=== PATIENT | male | born 1980 | race Caucasian/White ===

== ENCOUNTER 2018-10-16 13:52 | Emergency (ER) | payer SELFPAY ==
[~2018-10-16] VITALS: Ht 165.1 cm; Wt 92.2 kg
[~2018-10-16 13:52] MED LIST: CEPH-443 PO; HYDR-3498 PO; IBUP-1542 PO
[2018-10-16 14:04] VITALS: BP 143/86; PULSE 81; RESP 18; Ht 165.1 cm; Wt 92.2 kg
[2018-10-16] MEDS ORDERED: LIDOCAINE 1% (MPF) 5 ML VIAL INFIL ONE (17:30)
[2018-10-16] MEDS ORDERED: DIPHTH/TET/ACEL PERTUSS (ADULT) 0.5 ML VIAL IM* ONE (20:30)
[2018-10-16] MEDS ORDERED: IBUP-1542 PO (20:47)
[2018-10-16] MEDS ORDERED: ACET-141 PO (20:47)
[2018-10-16] MEDS ORDERED: CEPH-443 PO (20:49)
--- NOTE | 2018-10-16 20:58 | ERD ---
ER Documentation Chief Complaint Chief Complaint pt is bib self with c/o lac between left ring and middle finger HPI 38-year-old male presents for right hand laceration between the third and fourth digit webspace. He states that he was working on some sheet metal accidentally lacerated his finger. No pain currently. Unclear when he last had his tetanus shot. Denies sniffing past medical history. ROS All systems reviewed and are negative except as per history of present illness. Medications Home Meds Active Scripts Cephalexin* (Keflex*) 500 Mg Capsule, 500 MG PO TID for hand infection for 5 Days, #15 CAP Prov:UCHE WADE DO 10/16/18 Acetaminophen* (Acetaminophen*) 500 MG Extra Strength Tablet, 500 MG PO Q4H PRN for PAIN AND OR ELEVATED TEMP, #30 TAB Prov:UCHE WADE DO 10/16/18 Ibuprofen* (Motrin*) 600 Mg Tab, 600 MG PO Q6H PRN for PAIN AND OR ELEVATED TEMP, #30 TAB Prov:UCHE WADE DO 10/16/18 Cephalexin* (Keflex*) 500 Mg Capsule, 500 MG PO QID for 7 Days, CAP Prov:CHO,HECTOR 01/04/15 Hydrocodone Bit-Acetaminophen* ([place]*) 5-325 Mg Tab, 1 TAB PO Q6 PRN for PAIN LEVEL 6-10, #15 TAB Prov:CHO,HECTOR 01/04/15 Ibuprofen* (Motrin*) 600 Mg Tab, 600 MG PO Q6 for PAIN LEVEL 1-5, #15 TAB Prov:CHO,HECTOR 01/04/15 Allergies Allergies: Coded Allergies: No Known Allergy (Unverified , 01/04/15) PMhx/Soc Medical and Surgical Hx: pt denies Medical Hx History of Surgery: Yes (HERNIA) Anesthesia Reaction: No Hx Neurological Disorder: No Hx Respiratory Disorders: No Hx Cardiac Disorders: No Hx Psychiatric Problems: No Hx Miscellaneous Medical Probl: No Hx Alcohol Use: Yes (SOCIAL) Hx Substance Use: No Hx Tobacco Use: Yes Smoking Status: Current some day smoker Physical Exam Vitals Vital Signs Date Temp Pulse Resp B/P (MAP) Pulse Ox O2 O2 Flow FiO2 Time Delivery Rate 10/16/18 98.1 81 18 143/86 96 14:04 (105) Physical Exam Const: No acute distress Resp clear to all station bilaterally Cardio: Regular rate and rhythm, no murmurs, cap refills less than 2 seconds in all fingers of left hand Abd: Soft, non tender, non distended. Normal bowel sounds Skin: 2 cm laceration noted over the left hand third and fourth digit webspace Back: No midline or flank tenderness Ext: No cyanosis, or edema Neur: Awake and alert, sensation intact over the left hand Psych: Normal Mood and Affect Results 24 hrs Current Medications Medications Dose Sig/Po Start Time Status Last (Trade) Ordered Route PRN Stop Time Admin Dose Reason Admin Lidocaine 5 ml ONCE ONCE 10/16/18 DC (Xylocaine INFIL 17:30 1% (Mpf)) 10/16/18 17:31 Diphtheria/ 0.5 ml ONCE ONCE 10/16/18 DC 10/16/18 Tetanus/Acell IM* 20:30 20:39 Pertussis 10/16/18 20:31 (Adacel) Procedures/MDM Laceration Repair by me: Anesthesia: 1% lidocaine without epinephrine locally Location: Left hand webspace between the third and fourth digit Tendon/Joint/Nerves: No injury Foreign body: None detected after copious irrigation and exploration Technique: Simple Interrupted Sutures Complexity: No subcutaneous sutures/mucosal repair/edge excision Post Closure Length: 2 cm Patient's bleeding was easily controlled in the department and there is no indication of anemia. No evidence of compartment syndrome, neurologic injury, vascular injury, open joint, tendon laceration, or foreign body. Patient is appropriate for outpatient follow up. 48 hour wound check. Scar minimization instructions given. Medical Decision Making: Patient has a laceration on the left hand between the third and fourth digit webspace Patient appeared well on physical exam. Patient neurovascularly intact ED course: Given the patient was using sheet-metal there was concern for foreign body therefore x-ray was done. X-ray left hand 3V interpreted by me: Scaphoid: Normal Bones: No fracture Joints: No dislocation Foreign body: None Tetanus was updated. Prescription(s): Patient given prescription for supportive medication(s). Advised to return to the ER in 48 hours for wound check. Advised to return to the ER in 10-14 days for suture removal. Patient advised to follow up with PCP in 1-2 days. Patient advised to return to ED for new or worsening symptoms. Patient stable on discharge from the ED. Disclaimer: Inadvertent spelling and grammatical errors are likely due to EHR/dictation software use and do not reflect on the overall quality of patient care. Also, please note that the electronic time recorded on this note does not necessarily reflect the actual time of the patient encounter. Departure Diagnosis: Primary Impression: Laceration Patient Instructions: Laceration, All Referrals: [facility] YOU HAVE RECEIVED A MEDICAL SCREENING EXAM AND THE RESULTS INDICATE THAT YOU DO NOT HAVE A CONDITION THAT REQUIRES URGENT TREATMENT IN THE EMERGENCY DEPARTMENT. FURTHER EVALUATION AND TREATMENT OF YOUR CONDITION CAN WAIT UNTIL YOU ARE SEEN IN YOUR DOCTORS OFFICE WITHIN THE NEXT 1-2 DAYS. IT IS YOUR RESPONSIBILITY TO MAKE AN APPOINTMENT FOR FOLOW-UP CARE. IF YOU HAVE A PRIMARY DOCTOR --you should call your primary doctor and schedule an appointment IF YOU DO NOT HAVE A PRIMARY DOCTOR YOU CAN CALL OUR PHYSICIAN REFERRAL HOTLINE AT IF YOU CAN NOT AFFORD TO SEE A PHYSICIAN YOU CAN CHOSE FROM THE FOLLOWING [facility] [address] [facility]. [facility] [address] [facility] [address] [facility] [address] [facility] [address] [facility] [facility]. [address] Additional Instructions: Call your primary care doctor TOMORROW for an appointment during the next 1-2 days.See the doctor sooner or return here if your condition worsens before your appointment time. Llame al doctor MAANA y jeannie sergey SIMON PARA DENTRO DE 1-2 SINGLETON.Dgale a la secretaria que nosotros le instruimos hacer esta simon.Avise o llame si duke condicin se empeora antes de la simon. Regresa aqui si peor o no mejor. Return to ER in 2 days for wound check Return in 10-14 days for suture removal UCHE WADE DO Oct 16, 2018 20:58
== END 2018-10-16 21:03 | disposition home or self-care (01) ==
LOC: FTE 13:52
DX: S61.412A Laceration without foreign body of left hand, initial encounter (principal); F17.210 Nicotine dependence, cigarettes, uncomplicated; W26.8XXA Contact with other sharp object(s), not elsewhere classified, initial encounter; Y92.89 Other specified places as the place of occurrence of the external cause; Z23 Encounter for immunization
CPT/HCPCS: 90471; 90715

== ENCOUNTER → 2018-10-18 | Emergency (ER) | payer SELFPAY ==
[~2018-10-18] VITALS: Ht 172.7 cm; Wt 91.1 kg
[~2018-10-18] MED LIST changes: +ACET-141 PO
[2018-10-18 12:08] VITALS: BP 133/69; PULSE 82; RESP 16; Ht 172.7 cm; Wt 91.1 kg
--- NOTE | 2018-10-18 12:53 | ERD ---
ER Documentation Chief Complaint Chief Complaint for recheck of sutures on lt hand HPI Patient is a 38-year-old male presents to the ER for concerns of wound recheck. Patient sustained a laceration on his left hand in between the third and fourth webspace 2 days ago. Patient denies any fevers or chills. Patient has normal range of motion of all digits. Patient is taking antibiotics as prescribed. ROS All systems reviewed and are negative except as per history of present illness. Medications Home Meds Active Scripts Cephalexin* (Keflex*) 500 Mg Capsule, 500 MG PO TID for hand infection for 5 Days, #15 CAP Prov:UCHE WADE DO 10/16/18 Acetaminophen* (Acetaminophen*) 500 MG Extra Strength Tablet, 500 MG PO Q4H PRN for PAIN AND OR ELEVATED TEMP, #30 TAB Prov:UCHE WADE DO 10/16/18 Ibuprofen* (Motrin*) 600 Mg Tab, 600 MG PO Q6H PRN for PAIN AND OR ELEVATED TEMP, #30 TAB Prov:UCHE WADE 10/16/18 Cephalexin* (Keflex*) 500 Mg Capsule, 500 MG PO QID for 7 Days, CAP Prov:CHO,HECTOR 01/04/15 Hydrocodone Bit-Acetaminophen* ([place]*) 5-325 Mg Tab, 1 TAB PO Q6 PRN for PAIN LEVEL 6-10, #15 TAB Prov:CHO,HECTOR 01/04/15 Ibuprofen* (Motrin*) 600 Mg Tab, 600 MG PO Q6 for PAIN LEVEL 1-5, #15 TAB Prov:CHO,HECTOR 01/04/15 Allergies Allergies: Coded Allergies: No Known Allergy (Unverified , 01/04/15) PMhx/Soc History of Surgery: Yes (HERNIA) Anesthesia Reaction: No Hx Neurological Disorder: No Hx Respiratory Disorders: No Hx Cardiac Disorders: No Hx Psychiatric Problems: No Hx Miscellaneous Medical Probl: No Hx Alcohol Use: Yes (SOCIAL) Hx Substance Use: No Hx Tobacco Use: Yes FmHx Family History: No diabetes Physical Exam Vitals Vital Signs Date Temp Pulse Resp B/P (MAP) Pulse Ox O2 O2 Flow FiO2 Time Delivery Rate 10/18/18 97.6 82 16 133/69 98 12:08 (90) Physical Exam GENERAL: Well-developed, well-nourished male. Appears in no acute distress. HEAD: Normocephalic, atraumatic. EYES: Pupils are equally reactive bilaterally. EOMs grossly intact. No conjunctival erythema. NECK: Supple. No meningismus. Normal range of motion of the neck. LUNG: Clear to auscultation bilaterally. No rhonchi, wheezing, rales or coarse breath sounds. HEART: Regular rate and rhythm. No murmurs, rubs or gallops. EXTREMITIES: Equal pulses bilaterally. No peripheral clubbing, cyanosis or edema. No unilateral leg swelling. NEUROLOGIC: Alert and oriented. Moving all four extremities without any difficulty. Normal speech. Steady gait. SKIN: 2 cm healing laceration noted between the left third and fourth digit web spaces. No wound dehiscence. No bleeding or drainage. No surrounding erythema or warmth. Procedures/MDM MEDICAL DECISION MAKING: This is a 38-year-old male presents ER for concerns of wound check. Vital signs were reviewed. Patient is afebrile. The wound appears to be healing well with no concerns of acute infection at this time. No wound drainage or wound dehiscence noted. Tetanus is up-to-date. Patient advised to return in 7 days for suture removal. PRESCRIPTIONS: Continue to take antibiotics as prescribed. Complete full course. DISCHARGE: At this time, the patient is stable for discharge and outpatient management. Post-procedural wound care was discussed with the patient. I have instructed the patient to promptly return to the ER for any new or worsening symptoms including increasing pain, fever, warmth, redness or swelling. The patient and/or family expressed understanding of and agreement with this plan. All questions were answ ered. Home care instructions were provided. Disclaimer: Inadvertent spelling and grammatical errors are likely due to EHR/dictation software use and do not reflect on the overall quality of patient care. Also, please note that the electronic time recorded on this note does not necessarily reflect the actual time of the patient encounter. Patient advised to return here in 7 days for suture removal. Departure Diagnosis: Primary Impression: Encounter for wound re-check Condition: Fair Patient Instructions: Wound Check, Lac F/U (No Infection) Referrals: [facility] YOU HAVE RECEIVED A MEDICAL SCREENING EXAM AND THE RESULTS INDICATE THAT YOU DO NOT HAVE A CONDITION THAT REQUIRES URGENT TREATMENT IN THE EMERGENCY DEPARTMENT. FURTHER EVALUATION AND TREATMENT OF YOUR CONDITION CAN WAIT UNTIL YOU ARE SEEN IN YOUR DOCTORS OFFICE WITHIN THE NEXT 1-2 DAYS. IT IS YOUR RESPONSIBILITY TO MAKE AN APPOINTMENT FOR FOLOW-UP CARE. IF YOU HAVE A PRIMARY DOCTOR --you should call your primary doctor and schedule an appointment IF YOU DO NOT HAVE A PRIMARY DOCTOR YOU CAN CALL OUR PHYSICIAN REFERRAL HOTLINE AT IF YOU CAN NOT AFFORD TO SEE A PHYSICIAN YOU CAN CHOSE FROM THE FOLLOWING [facility] [address] [facility] [address] [facility] [address] [facility] [address] [facility] [address] [facility]. [facility] [address] [facility]. [facility] YOU HAVE RECEIVED A MEDICAL SCREENING EXAM AND THE RESULTS INDICATE THAT YOU DO NOT HAVE A CONDITION THAT REQUIRES URGENT TREATMENT IN THE EMERGENCY DEPARTMENT. FURTHER EVALUATION AND TREATMENT OF YOUR CONDITION CAN WAIT UNTIL YOU ARE SEEN IN YOUR DOCTORS OFFICE WITHIN THE NEXT 1-2 DAYS. IT IS YOUR RESPONSIBILITY TO MAKE AN APPOINTMENT FOR FOLOW-UP CARE. IF YOU HAVE A PRIMARY DOCTOR --you should call your primary doctor and schedule and appointment IF YOU DO NOT HAVE A PRIMARY DOCTOR YOU CAN CALL OUR PHYSICIAN REFERRAL HOTLINE AT . IF YOU CAN NOT AFFORD TO SEE A PHYSICIAN YOU CAN CHOSE FROM THE FOLLOWING [facility]: [facility] [address] [place] [address] [facility] [address] [place] [address] [facility] [address] [place] [address] Additional Instructions: Continue antibiotics. Suture removal advised in 7 days Call your primary care doctor TOMORROW for an appointment during the next 1-2 days.See the doctor sooner or return here if your condition worsens before your appointment time. LANCE SWEET PA-C Oct 18, 2018 12:53
== END | disposition home or self-care (01) ==
LOC: FTE 11:49
DX: Z48.01 Encounter for change or removal of surgical wound dressing (principal)
CPT/HCPCS: 99281

== ENCOUNTER 2018-10-23 12:21 | Emergency (ER) | payer MEDICAID ==
[~2018-10-23] VITALS: Ht 170.2 cm; Wt 90.6 kg
[2018-10-23 12:33] VITALS: BP 144/78; PULSE 79; RESP 18; Ht 170.2 cm; Wt 90.6 kg
--- NOTE | 2018-10-23 13:53 | ERD ---
ER Documentation Chief Complaint Chief Complaint L hand suture removal s/p 7 days; no s/sx of infx HPI 38-year-old male presents for evaluation for suture removal of the left hand. He sustained laceration 7 days ago. He has no redness, discharge, bleeding. ROS All systems reviewed and are negative except as per history of present illness. Medications Home Meds Active Scripts Cephalexin* (Keflex*) 500 Mg Capsule, 500 MG PO TID for hand infection for 5 Days, #15 CAP Prov:UCHE WADE DO 10/16/18 Acetaminophen* (Acetaminophen*) 500 MG Extra Strength Tablet, 500 MG PO Q4H PRN for PAIN AND OR ELEVATED TEMP, #30 TAB Prov:UCHE WADE DO 10/16/18 Ibuprofen* (Motrin*) 600 Mg Tab, 600 MG PO Q6H PRN for PAIN AND OR ELEVATED TEMP , #30 TAB Prov:UCHE WADE DO 10/16/18 Cephalexin* (Keflex*) 500 Mg Capsule, 500 MG PO QID for 7 Days, CAP Prov:CHO,HECTOR 01/04/15 Hydrocodone Bit-Acetaminophen* ([place]*) 5-325 Mg Tab, 1 TAB PO Q6 PRN for PAIN L EVEL 6-10, #15 TAB Prov:CHO,HECTOR 01/04/15 Ibuprofen* (Motrin*) 600 Mg Tab, 600 MG PO Q6 for PAIN LEVEL 1-5, #15 TAB Prov:CHO,HECTOR 15 Allergies Allergies: Coded Allergies: No Known Allergy (Unverified , 01/04/15) PMhx/Soc History of Surgery: Yes (HERNIA) Anesthesia Reaction: No Hx Neurological Disorder: No Hx Respiratory Disorders: No Hx Cardiac Disorders: No Hx Psychiatric Problems: No Hx Miscellaneous Medical Probl: No Hx Alcohol Use: Yes (SOCIAL) Hx Substance Use: No Hx Tobacco Use: Yes Smoking Status: Current some day smoker FmHx Family History: No diabetes, No coronary disease, No other Physical Exam Vitals Vital Signs Date Temp Pulse Resp B/P (MAP) Pulse Ox O2 O2 Flow FiO2 Time Delivery Rate 10/23/18 97.9 79 18 144/78 96 12:33 (100) Physical Exam Const: No acute distress Head: Atraumatic Eyes: Normal Conjunctiva ENT: Normal External Ears, Nose and Mouth. Neck: Full range of motion. No meningismus. Resp: Clear to auscultation bilaterally Cardio: Regular rate and rhythm, no murmurs Abd: Soft, non tender, non distended. Normal bowel sounds Skin: No petechiae or rashes Back: No midline or flank tenderness Ext: No cyanosis, or edema. Left hand with healing laceration without erythema, bleeding, discharge, restricted range of motion. Sutures intact. Neur: Awake and alert Psych: Normal Mood and Affect Procedures/MDM Patient presents with a satisfactorily healing left hand laceration without signs of ischemia, deficits infection. Sutures removed without complications. Patient will be discharged home with return precautions for fevers, redness, new or worsening symptoms. The patient was stable with no new complaints during the ER course. Clinically, there is no current evidence to suggest meningitis, sepsis, acute abdomen, pneumonia, stroke, acute coronary syndrome, pulmonary embolism, aortic dissection or any other emergent condition appearing to require further evaluation or hospitalization. Patient counseled regarding my diag nostic impression and care plan. Prior to discharge all questions answered. Pt agrees with treatment plan and understands strict return precautions. Pt is instructed to follow up with primary care provider within 24-48 hours. Precautionary instructions provided including instructions to return to the ER if not improving or for any worsening or changing symptoms or concerns. Departure Diagnosis: Primary Impression: Encounter for removal of sutures Condition: Stable Patient Instructions: Suture Removal, No Complication ARBEN ONEAL MD Oct 23, 2018 13:53
== END 2018-10-23 14:26 | disposition home or self-care (01) ==
LOC: FTE 12:21
DX: Z48.02 Encounter for removal of sutures (principal); F17.210 Nicotine dependence, cigarettes, uncomplicated
CPT/HCPCS: 99281